=== PATIENT | male | born 1980 | race African-American/Black ===

== ENCOUNTER 2025-05-09 10:15 | Emergency (ER) | payer OTHER ==
[2025-05-09 11:15] VITALS: BP 125/75; PULSE 100; RESP 18; TEMP 98.2; BMI 22.7
[2025-05-09] MEDS: ACETAMINOPHEN 1000 MG/100 ML BAG IVPB ONE ×2 (11:52→12:19)
[2025-05-09] MEDS ORDERED: ACETAMINOPHEN INJECTION 100 ML ONE (12:06)
[2025-05-09 12:29] LABS: ABSOLUTE IMMATURE GRANULOCYTES 0.05 x10^3/uL (0.0-0.031); BASOPHILS # 0.04 x10^3/uL (0.01-0.08); EOSINOPHIL % 0.5 % (0.8-7.0); EOSINOPHILS # 0.06 x10^3/uL (0.04-0.54); MCHC 31.7 g/dl (32.3-36.5); MEAN CELL VOLUME 112.6 fl (79.0-92.2); MEAN PLT VOLUME 10.1 fl (9.4-12.4); MONOCYTE # 1.23 x10^3/uL (0.30-0.82); MONOCYTE % 10.7 % (5.3-12.2); RDW 12.5 % (12.1-15.9)
[2025-05-09 12:35] LABS: INR 1.16 (0.83-1.09); PROTHROMBIN TIME (PATIENT) 12.8 SEC (9.7-13.0)
[2025-05-09 12:38] LABS: ACTIVATED PTT 28.4 SECONDS (25.2-36.5)
[2025-05-09 14:30] LABS: ALK PHOS 87.0 U/L (45-117); CO2 27.0 mmol/L (21-32); CREATININE 0.7 mg/dL (0.55-1.3); GLUCOSE,RANDOM 70.0 mg/dL (74-106); SGOT/AST 20.0 U/L (15-37); SGPT/ALT 23.0 U/L (13-61); TOT PROT 6.8 g/dl (6.4-8.2)
[2025-05-10 01:02] LABS: HCV DIAGNOSTIC IN-HOUSE W/RFLX NON-REACTIVE (NONREACTIVE)
[2025-05-10 01:05] LABS: HIV INTERPRETATION NEGATIVE (NEGATIVE)
== END 2025-05-09 13:51 | disposition left against medical advice (07) ==
LOC: JER 10:15
PROC: 3E033NZ Introduction of Analgesics, Hypnotics, Sedatives into Peripheral Vein, Percutaneous Approach (ICD-10-PCS; principal; 2025-05-09)
DX: K61.0 Anal abscess (principal)
CPT/HCPCS: 36415; 74176-TC; 80053; 85025; 85610; 85730; 86803; 86850; 86900; 86901; 87389; 93005; 93010; 99285-25